=== PATIENT | female | born 1960 | race Two or more races ===

== ENCOUNTER 2025-09-03 10:02 | Outpatient (CLI) | payer OTHER ==
[2025-09-03 11:30] LABS: Alanine Aminotransferase 22 U/L (7-40); Albumin 4.7 g/dL (3.2-4.8); Anion Gap 11 (5-15); BUN/Creatinine Ratio 14.6 (10.0-20.0); Bilirubin, Total 0.6 mg/dL (0.2-1.0); Blood Urea Nitrogen 12 mg/dL (9-23); Calcium 9.9 mg/dL (8.7-10.4); Carbon Dioxide 26 mmol/L (20-31); Chloride 106 mmol/L (98-107); HDL Cholesterol 55 mg/dL (40-59); Potassium 3.8 mmol/L (3.5-5.1); Sodium 143 mmol/L (136-145); Total Protein 7.8 g/dL (5.7-8.2); Triglycerides 101 mg/dL (< 150)
[2025-09-03 11:33] LABS: Alkaline Phosphatase 159 U/L (46-116); Cholesterol 213 mg/dL (< 200); Glucose 114 mg/dL (74-106)
[2025-09-03 11:37] LABS: Free T4 (Free Thyroxine) 0.97 ng/dL (0.89-1.76)
[2025-09-03 11:54] LABS: Hematocrit 42.3 % (36.0-46.0); Hemoglobin 14.4 g/dL (12.2-16.2); Mean Corpuscular Hemoglobin 31.8 pg (28.0-32.0); Mean Corpuscular Volume 93.5 fL (80.0-100.0); Nucleated Red Blood Cells % 0.2 %
[2025-09-03 13:32] LABS: Hepatitis B Surface Antigen Negative (Negative)
== END 2025-09-03 17:00 | disposition home or self-care (01) ==
LOC: LAB 10:02
DX: Z00.8 Encounter for other general examination (principal)
CPT/HCPCS: 36415; 80053; 80061; 82043; 82306; 82607; 83036; 84439; 84443; 85025; 86704; 86706; 87340